=== PATIENT | female | born 1990 | race American Indian/Alaskan Native ===

== ENCOUNTER 2017-06-25 10:01 | Emergency (ER) | payer MEDICAID ==
[2017-06-25 10:23] VITALS: BMI 28.8
[2017-06-25] MEDS ORDERED: Sodium Chloride 0.9% 1,000 ML IV SCH (10:30)
[2017-06-25 11:02] LABS: BASO % 0.6 % (0.0-2.0); EOS # 0.3 K/uL (0.0-0.7); EOS % 4.6 % (0.0-4.0); HEMATOCRIT 32.3 % (34.0-47.0); LYMPH % 15.3 % (20.0-40.0); MEAN CELL VOLUME 91.4 fL (81.0-99.0); MEAN CORPUSCULAR HEMOGLOBIN 30.7 pg (27.0-31.0); MEAN CORPUSCULAR HGB CONC 33.5 g/dL (33.0-37.0); MEAN PLATELET VOLUME 8.5 fL (7.2-11.7); MONO # 0.4 K/uL (0.0-0.8); MONO % 6.2 % (0.0-10.0); NRBC % 0.1 % (0.0-2.0); RED CELL DISTRIBUTION WIDTH 12.5 % (11.5-14.5); WHITE BLOOD COUNT 6.7 K/uL (4.8-10.8)
[2017-06-25 11:06] LABS: RBC URINE 8 /hpf (0-3); URINE BACTERIA MOD (<OCC); URINE BILIRUBIN NEGATIVE (NEGATIVE); URINE BLOOD NEGATIVE (NEGATIVE); URINE COLOR Yellow (YELLOW); URINE GLUCOSE (UA) NORMAL (Normal); URINE KETONE 1+ mg/dL (NEGATIVE); URINE LEUKOCYTE ESTERASE 3+ Leu/uL (Negative); URINE PROTEIN 1+ mg/dL (NEGATIVE); URINE UROBILINOGEN NORMAL mg/dL (0.2-1.0); WBC URINE 17 /hpf (0-5)
[2017-06-25 11:08] LABS: INR 0.9
[2017-06-25 11:22] LABS: CHLORIDE 100 mmol/L (98-107); POTASSIUM 3.5 mmol/L (3.6-5.2); SODIUM 130 mmol/L (132-148)
[2017-06-25 11:24] LABS: ALB/GLOB RATIO 0.9 (1.0-2.1); AST/SGOT 27 U/L (14-36); BILIRUBIN,DIRECT 0.4 mg/dL (0.0-0.4); BILIRUBIN,TOTAL 0.8 mg/dL (0.2-1.3); BLOOD UREA NITROGEN 4 mg/dL (7-17); CARBON DIOXIDE 21 mmol/L (22-30); GFR AFRICAN-AMERICAN > 60; TOTAL PROTEIN 7.4 g/dL (6.3-8.3)
[2017-06-25 11:25] LABS: ALKALINE PHOSPHATASE 84 U/L (38-126); ALT/SGPT 20 U/L (9-52); CALCIUM 8.2 mg/dl (8.6-10.4); GLUCOSE,RANDOM 88 mg/dL (65-105); URIC ACID 3.8 mg/dL (2.2-7.5)
--- NOTE | 2017-06-25 12:41 | US ---
Indication: Decreased movement Comparison: None available Technique: Real-time ultrasound was performed through the pelvis. Findings: There is a single living fetus in cephalic presentation. Amniotic fluid volume is within normal limits. Posterior placenta. The placenta is not previa. There are no adnexal masses or cysts evident. Probable midline uterine fibroid measures approximately 3.6 x 2.1 x 3.2 cm. Cervix length measures approximately 3.6 cm. The study was performed for the emergent evaluation of decreased movement, and the whole anatomic survey of the fetus was not performed. This should be performed on an outpatient elective basis as clinically warranted. Measurements and calculations: Fetus has a composite sonographic age of 28 weeks 1 day. This calculation is based on the biparietal diameter, head circumference, abdominal circumference, and femur length. Estimated heart rate 137.2 beats per min. Impression: Single living fetus with a composite sonographic age of 28 weeks 1 day. Estimated heart rate 137.2 beats per min. 3.6 cm probable uterine fibroid.
--- NOTE | 2017-06-25 12:55 | OBHP ---
Datetime: 06/25/2017 12:55 FHR - Baseline A Provider: 140 NICHD Variability Prov Fetus A: Moderate 6-25bpm NICHD Accel Fetus A IP Provider: 10X10 FHR Category Provider Fetus A: Category I Datetime: 06/25/2017 10:33 Admit Comment, IP Provider: 27 year old female , LMP 11/30/16, ZAHRA 09/07/17, EGA 30weeks 1 day . (+) AFM, denies CORNELIA, VB. care Dr. Bailon. Patient states she has been having back pain for the past 2 days that stays and it feels like a muscle pain about 7/10. It is worse when she is m oving and it becomes a 9/10. Nothing makes the pain better and she has not taken anything for the pa in. She states she also feels lightheadedness like she is going to pass out and when she has that fe eling which comes and goes she lays down. She also states she has had some nausea. Patient states s he had an appointment yesterday with Dr. Bailon but she was not feeling very well and she missed he r appointment. The last time she had an appointment was 2 weeks ago. OB History: Vaginal delivery (baby boy 6lbs 12oz) in 2014 delivered at [facility] [employer] History: [id number] Medical History: Asthma, reflux Surgical History: Sinus surgery Social History: Denies alcohol, Smoked marijuana 2x per week stopped during . Denies othe r illicit drug use Medications: Albuterol as needed, medication for reflux - patient does not recall the name Allergies: Nuts - throat closes, fish: rashes Physical Exam: Alert, awake, oriented x3 Heart: RRR Lungs: Clear Abdomen: Soft, non-tender, fundus at about 30 weeks, No CVA tenderness Lower Extremities: No swelling, tenderness A/P: 27 yo female at 30weeks 1day 1.) f/u CBC, CMP, liver panel, INR/PT, fibrinogen, LDH, uric acid 2.) US 3.) UA Discussed case with Dr. Artur Kern PGY-1 Attending not agrees with qabove Pelvic Type - PN: Adequate Extremities - PN: Normal Abdomen - PN: Normal Back - PN: Normal Breast - PN: Normal Lungs - PN: Normal Heart - PN: Normal Thyroid - PN: Normal Neurologic - PN: Normal HEENT - PN: Normal General - PN: Normal Contraction Comments Provider: none Comments, ACOG Physical Exam: Alert, awake, oriented x3 Heart: RRR Lungs: Clear Abdomen: Soft, non-tender, fundus at about 30 weeks, No CVA tenderness Lower Extremities: No swelling, tenderness IP Hx Assessment: The History has been Reviewed and is Current EGA AdmitDate IP: 29.3 Vital Signs Provider: Reviewed; Within Normal Limits IP Chief Complaint: Decreased movement; Signs/symptoms UTI Dilatation, Provider: 0 Effacement, Provider: 0 Station, Provider: -3 Genitourinary Exam: Normal DTRs - PN: Normal
--- NOTE | 2017-06-25 12:57 | OBDCSUM ---
Datetime: 06/25/2017 12:56 Discharged to, Provider: Home Follow up at, Provider: dr bennett Follow up in weeks, Provider: 2 -3 Disch Activity Restrictions: Nothing in vagina - [place], tampons, douche Discharge Comment, Provider: macrobid 100 mg bid x 7 days kdur po ptl given po hyr f/u DrAmonsah in 2-3 days Discharge Diagnosis Prov Other: 29week nst r/o pih uti
--- NOTE | 2017-06-25 12:58 | OBHP ---
Datetime: 06/25/2017 12:55 Admit Comment, IP Provider: pt was seen at bed side.feels ok blood work n k 3.5 ua 3 +le plan macrobid 100 mg bid x 7 days kdur po ptl given po hyr f/u DrAmonsah in 2-3 days
[2017-06-25] MEDS ORDERED: Potassium Chloride 20 mEq ER Tab PO SCH (13:00)
[2017-06-26 17:24] VITALS: BP 111/66; PULSE 82; O2SAT 100
== END 2017-06-25 12:56 | disposition home or self-care (01) ==
LOC: C.EROB 10:01
DX: O36.8130 Decreased fetal movements, third trimester, not applicable or unspecified (principal); Z3A.29 29 weeks gestation of pregnancy
CPT/HCPCS: 76815; 80053; 81001; 82248; 83615; 84550; 85025; 85384; 85610; 99283; J7040

== ENCOUNTER 2017-07-18 13:21 | Emergency (ER) | payer MEDICAID ==
[2017-07-18 14:23] VITALS: BMI 30.3
--- NOTE | 2017-07-18 14:41 | C.PDOC ---
History Of Present Illness 27 year old female, 32 weeks , with past medical history of asthma, seasonal allergies, presents to Emergency Department for evaluation of cough, congestion, shortness of breath for the past 2 weeks. Notes being seen by PMD last week who prescribed cough medication and antibiotics which patient completed without improvement of symptoms. Denies taking any medications for her asthma. Pt reports having an episode of vomiting last week. Otherwise, denies vaginal bleeding, vaginal discharge, abdominal pain, or fever. Chief Complaint (Nursing): Cough, Cold, Congestion History Per: Patient History/Exam Limitations: no limitations Onset/Duration Of Symptoms: Days (1 month) Current Symptoms Are (Timing): Still Present Exacerbating Factor(s): Coughing Current Respiratory Medications: See Home Med List Associated Symptoms: denies: Fever, Chills, Sweating, Bloody Cough, Heart Racing , Leg/Calf Pain, Ankle/Leg Swelling, Dizziness, Light-headedness, Anxiety, Tingling In Hands Or Face, Musle Spasms In Hands Or Feet Reports Recently: Treated By A Physician Recent travel outside of the [place]: No Additional History Per: Patient Past Medical History Reviewed: Historical Data, Nursing Documentation, Vital Signs Vital Signs: Last Vital Signs Temp 97.6 F 07/18/17 16:04 Pulse 111 H 07/18/17 16:04 Resp 18 07/18/17 16:04 BP 121/76 07/18/17 16:04 Pulse Ox 97 07/18/17 16:04 - Medical History PMH: Asthma Denies: Depression, Chronic Kidney Disease - [facility] Procedures INJECT/INFUSE NEC (06/28/14) MANUAL ASSIST DELIV NEC (03/06/15) REPAIR OB LACERATION NEC (03/06/15) Family History: States: Unknown Family Hx - Social History Hx Alcohol Use: No Hx Substance Use: No - Immunization History Hx Tetanus Toxoid Vaccination: No Hx Influenza Vaccination: No Hx Pneumococcal Vaccination: No Review Of Systems Except As Marked, All Systems Reviewed And Found Negative. Constitutional: Positive for: Weakness. Negative for: Fever, Chills ENT: Positive for: Nose Congestion Cardiovascular: Positive for: Chest Pain (tightness). Negative for: Palpitations, Light Headedness Respiratory: Positive for: Cough, Shortness of Breath. Negative for: Hemoptysis , Sputum Gastrointestinal: Positive for: Vomiting. Negative for: Abdominal Pain, Diarrhea, Constipation Genitourinary: Negative for: Vaginal Discharge, Vaginal Bleeding Musculoskeletal: Negative for: Back Pain Neurological: Positive for: Headache, Dizziness Physical Exam - Physical Exam Appears: Non-toxic, No Acute Distress Skin: Normal Color, Warm, Dry Head: Atraumatic, Normacephalic Eye(s): bilateral: Normal Inspection, PERRL, EOMI Oral Mucosa: Moist Neck: Normal ROM, Supple Chest: Symmetrical Cardiovascular: Rhythm Regular, No Murmur Respiratory: Normal Breath Sounds, No Accessory Muscle Use, No Rales, No Rhonchi , No Wheezing, Other (dry cough) Gastrointestinal/Abdominal: Soft, No Tenderness Back: Normal Inspection Extremity: Normal ROM, No Pedal Edema, No Deformity Neurological/Psych: Oriented x3, Normal Speech Gait: Steady ED Course And Treatment O2 Sat by Pulse Oximetry: 98 (RA) Pulse Ox Interpretation: Normal Medical Decision Making Medical Decision Making: Plan: * Nebulizer treatment * Reassess Patient was already seen and cleared from L&D. Patient has no fever and in no respiratory distress. Constant dry cough observed. treated with albuterol nebulizers, she reports relief. recommend short course of prednisone to help with asthma, allergies and bronchospasm. patient agrees and will take Rx. Instruct to follwo up with PCP Disposition Counseled Patient/Family Regarding: Diagnosis, Need For Followup, Rx Given - Disposition Disposition: HOME/ ROUTINE Disposition Time: 15:40 Condition: STABLE Additional Instructions: Follow up with your primary medical doctor or clinic in 2-5 days for further evaluation. Take medications as prescribed. Return to the emergency department at any time if symptoms persist or worsen. Prescriptions: Amoxicillin 500 mg PO BID #14 tablet Prednisone [Deltasone] 2 tab PO DAILY #6 tablet Instructions: Upper Respiratory Infection (ED) Forms: [employer] (Persian) - POA Present On Arrival: None - Clinical Impression Clinical Impression: Upper respiratory infection - PA / DATA ENTRY TECHNICIAN / Resident Statement MD/DO has reviewed & agrees with the documentation as recorded. - Scribe Statement The provider has reviewed the documentation as recorded by the Nicolás Marlow All medical record entries made by the Madelaineibisrael were at my direction and personally dictated by me. I have reviewed the chart and agree that the record accurately reflects my personal performance of the history, physical exam, medical decision making, and the department course for this patient. I have also personally directed, reviewed, and agree with the discharge instructions and disposition.
[2017-07-18] MEDS ORDERED: Albuterol 0.083% Inhal Sol (2.5 mg/3 mL) UD ONE ×2 (14:44→15:12)
[2017-07-18] MEDS: Albuterol 0.083% Inhal Sol (2.5 mg/3 mL) UD INH SCH ×2 (14:47→15:50)
[2017-07-18 16:05] VITALS: RESP 18; TEMP 97.6
[2017-07-18 18:17] VITALS: BP 119/70; PULSE 105; O2SAT 97
--- NOTE | 2017-07-27 02:55 | OBHP ---
Datetime: 07/27/2017 02:43 IP Adm Impression: , intrauterine Admit Comment, IP Provider: @ 34 wks GA reports 1 epsides of nause , vomiting 11pm (non bloody, non billious) with back pain and generalized muscle weakness and cramping. Pt states symptoms on and off x 1-2 days. Pt denies any fever, chills, cp, sob, dysuira, urgency, frequency, constipation, norma rrhea. pt reports able to tolerate po intake. Pt reports she was sick x 1 month and given anbitoc due ot upper respiratory infection. pT staets she has not received flu vaccine. Pt denies any sick conta cts. Pt denies any pelvic pressre, vb, ctx, lof adn reports normal movements. Pt reports she re ceives pnc with Dr Bailon and has an appointment on Friday and denies any issues during the pregnan cy. OB: FT Jace 2014 6lbs 12 ounces + uncomplicated [employer]: denies hx o fabnormla pap, fibroids, ovarian cyst, sti PMH: Asthma (denies intubations, recent hospitalization) PSH: nasal surgery FHX: non contributory MEDS: PNV ALLERGY: Fish, nuts SHX; h xof marijuna use, denies etoh/tobacco use A/P @ 34 + wks with gastroenteritis -f/u Labs; CBC, CMP, Amylase, lipase, UA -IVH -Po Challenge: able to tolerate -NST -no evidence of ptl -d/c home -f/u Dr Bailon Friday or return to [facility] as needed- precautions given Dr Bailon aware Pelvic Type - PN: Adequate Extremities - PN: Normal Abdomen - PN: Normal Back - PN: Normal Breast - PN: Not Done Lungs - PN: Normal Heart - PN: Normal Thyroid - PN: Not Done Neurologic - PN: Normal HEENT - PN: Normal General - PN: Normal Presentation-Admit: Vertex FHR - Baseline A Provider: 140 Membranes, Provider: Intact Contraction Comments Provider: irritalibty Comments, ACOG Physical Exam: GEN NAD, AA ox 3 RESP: ctab/l CVS< +S1/S2 Abd; gravid, NT, no palpable ctx, no guarding, no rebound tendnerness, no rigidity, BACK: no CVA b/l, non tendner b/l VE: Extenral Gentialia: no gross abnormalites Vagina: no blood no discharge Cerid; Long, closed, postieor Uterus: non tender Andex; non tender Anus/PereinuM: grossly normal Ext; negative bharati's sign, no edema Gestation - Est Wks by US: 34.0 EGA AdmitDate IP: 34.0 Vital Signs Provider: Reviewed IP Chief Complaint: Other NICHD Variability Prov Fetus A: Moderate 6-25bpm FHR Category Provider Fetus A: Category I Dilatation, Provider: 0 Effacement, Provider: 0 Station, Provider: -3 Genitourinary Exam: Normal DTRs - PN: Not Done
== END 2017-07-18 16:00 | disposition home or self-care (01) ==
LOC: C.EROB 13:21 → C.ER 13:21 → C.EROB 13:57
DX: J06.9 Acute upper respiratory infection, unspecified (principal)

== ENCOUNTER 2017-08-21 12:12 | Emergency (ER) | payer MEDICAID ==
--- NOTE | 2017-08-21 16:36 | US ---
PROCEDURE: Obstetrical ultrasound examination HISTORY: Decreased movement COMPARISON: 06/25/2017 TECHNIQUE: Transabdominal FINDINGS: There is a single live intrauterine gestation in cephalic presentation. The heart rate is 144 beats per minute. A grossly normal quantity of amniotic fluid is visualized. A normal posterior placenta is identified. There is no evidence of placenta previa. The cervix is closed and measures 3.3 cm in length. biometry yields an ultrasound age of 34 weeks 3 days. The ZAHRA by ultrasound is 09/29/2017. Estimated weight is 2475 g. Limited review of anatomy demonstrates fluid distending the stomach and urinary bladder. Two normal kidneys are visualized without hydronephrosis. A 4 chamber heart is seen. A three-vessel umbilical cord is identified. The anterior abdominal wall is intact. The umbilical arterial S/D ratio is 2.1. A limited biophysical profile examination yields a score of 8 out of 8 IMPRESSION: Single live intrauterine gestation of approximately 34 weeks 3 days gestational age. No gross anatomic abnormality. Posterior placenta. No evidence of placenta previa. Cephalic presentation. Cervix long and closed. Normal amniotic fluid volume. Biophysical profile score is 8 out of 8.
--- NOTE | 2017-08-21 17:26 | OBHP ---
Datetime: 08/21/2017 15:44 IP Adm Impression: Term, intrauterine IP Admit Plan: Discharge home Admit Comment, IP Provider: Patient is a 27 year old at 37w4d ZAHRA 09/07/17 by LMP presents t o L+D for decreased movement. Patient states that she noticed the baby not moving as much since 6pm last night. Also states that she is itchy in the face and scalp. Offers no other complaints at t his time. Currently endorses +FM, denies CTX, LOF, VB. Issues: Denies OB Hx: 1. 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 Patient is feeling the baby move. Will have patient return on Friday morning for NST. Patient is scheduled for induction friday evening. Dr Dias office notified. Plan d/w attending. OB attending patient examined.agree with resident exam, assessment and plan Extremities - PN: Normal Abdomen - PN: Normal Neurologic - PN: Normal General - PN: Normal FHR - Baseline A Provider: 140 Contraction Comments Provider: none Comments, ACOG Physical Exam: VSS Gen: AAOx3 Abd: soft, gravid Ext: No clubbing, cyanosis, edema SVE: deferred Gestation - Est Wks by US: 37.4 IP Hx Assessment: The History has been Reviewed and is Current EGA AdmitDate IP: 37.4 Vital Signs Provider: Reviewed; Within Normal Limits IP Chief Complaint: Decreased movement NICHD Variability Prov Fetus A: Moderate 6-25bpm NICHD Accel Fetus A IP Provider: 15X15 FHR Category Provider Fetus A: Category I NICHD Decel Fetus A IP Provider: None Genitourinary Exam: Normal
[2017-08-21 21:13] VITALS: BP 117/76; PULSE 75; RESP 20; TEMP 97; O2SAT 100
== END 2017-08-21 16:50 | disposition home or self-care (01) ==
LOC: C.EROB 12:12
DX: O36.8130 Decreased fetal movements, third trimester, not applicable or unspecified (principal); Z3A.37 37 weeks gestation of pregnancy

== ENCOUNTER 2017-08-23 09:39 | Emergency (ER) | payer MEDICAID ==
--- NOTE | 2017-08-23 11:39 | OBHP ---
Datetime: 08/23/2017 10:18 IP Adm Impression: Term, intrauterine IP Chief Complaint Other: NST IP Admit Plan: Discharge home Admit Comment, IP Provider: Patient is a 27 year old at 37w6d ZAHRA 09/07/17 by (LMP 11/30/16) presents today for NST. Patient state that she is still having itching of the face and scalp however has not been taking any medications for the itchiness. Offers no other complaints at this time. Endor ses +FM, denies CTX, VB, LOF. Issues: Cholestasis of OB Hx: 1. 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 Works at [employer] Family Hx: Mother - age 57, HTN; Father age 54 - healthy; denies family hx of cancer PE: See above A/P: 27 year old at 37w6d presents for NST -Stable, afebrile -NST is reactive -Scheduled induction on Friday08/25/17 for cholestasis of -Labor precautions given -Plan discussed with attending Meghan Bennett Attending Note: Patient seen, evaluated and examined by me with the Resident. I agree with the grey maria as documented. Category 1 tracing/ NST reactive. Clinically stable. Plan: 1) Discharge home 2) Reviewed S/S labor 3) Return Fri08/25/17 for IOL 4) Continue PNV, iron FHR - Baseline A Provider: 150 Contraction Comments Provider: none Comments, ACOG Physical Exam: VS: 130/86 105 Gen: AAOx3 CV: RRR Lungs: CTA B/L Abd: Soft, gravid Ext: No clubbing, cyanosis, edema SVE: deffered EFM: TOCO: no CTX IP Hx Assessment: The History has been Reviewed and is Current EGA AdmitDate IP: 37.6 Vital Signs Provider: Reviewed IP Chief Complaint: Other NICHD Variability Prov Fetus A: Moderate 6-25bpm NICHD Accel Fetus A IP Provider: 15X15 NICHD Decel Fetus A IP Provider: None
[2017-08-23 16:16] VITALS: BP 121/82; PULSE 105; RESP 20; O2SAT 98
== END 2017-08-23 11:30 | disposition home or self-care (01) ==
LOC: C.EROB 09:39
DX: Z36.9 Encounter for antenatal screening, unspecified (principal); Z3A.37 37 weeks gestation of pregnancy

== ENCOUNTER 2017-08-25 19:49 | Inpatient (IN) | payer MEDICAID ==
[2017-08-25 20:30] VITALS: BMI 31.1
[2017-08-25] MEDS ORDERED: Dextrose 5%/Lactated Ringer's 1,000 ML IV SCH (20:30)
[2017-08-25] MEDS ORDERED: Nalbuphine 20 mg/ml Inj (1 ml) IVP PRN (20:32)
--- NOTE | 2017-08-25 20:41 | OBADHP ---
Datetime: 08/25/2017 20:34 Admit Comment, IP Provider: at 38+weeks her for induction for labor. pt has been itiching on /o ff. pt was diagnosed with choleostasis of preg 1 week ago.no ctxs, vb, lof,+fm. obhx 1 x pmh asthma med pnv all nkda psh den soch de ve /-3 a/p at 38+weeksa here for induction for choleostasis of preg admit to l_d npo/ivf labs pain management cont norm and efm cervidil anticipate Pelvic Type - PN: Adequate Extremities - PN: Normal Abdomen - PN: Normal Back - PN: Normal Breast - PN: Normal Lungs - PN: Normal Heart - PN: Normal Thyroid - PN: Normal Neurologic - PN: Normal HEENT - PN: Normal General - PN: Normal FHR - Baseline A Provider: 130 Contraction Comments Provider: irrg Comments, ACOG Physical Exam: gravid,non tender ext no edema,no calf ten no rash IP Hx Assessment: The History has been Reviewed and is Current Vital Signs Provider: Reviewed; Within Normal Limits IP Chief Complaint: Scheduled induction of labor NICHD Variability Prov Fetus A: Moderate 6-25bpm NICHD Accel Fetus A IP Provider: 15X15 FHR Category Provider Fetus A: Category I Dilatation, Provider: 1 Effacement, Provider: 50 Station, Provider: -3 Genitourinary Exam: Normal DTRs - PN: Normal IP Adm Impression: Term, intrauterine ; No Active Labor IP Admit Plan: Admit to unit; Initiate labor induction protocol Datetime: 08/23/2017 10:18 IP Chief Complaint Other: NST NICHD Decel Fetus A IP Provider: None Datetime: 08/21/2017 15:44 Gestation - Est Wks by US: 37.4 Datetime: 07/27/2017 02:43 Presentation-Admit: Vertex Membranes, Provider: Eulogio LOPEZ AdmitDate IP: 34.0
[2017-08-25] MEDS: Lactated Ringer's 1,000 ML IV SCH (21:15)
--- NOTE | 2017-08-25 21:22 | OBPN ---
Datetime: 08/25/2017 21:19 IP Procedures: Sterile Vag Exam IP Progress Plan: Cervical Ripening Contraction Comments Provider: occ FHR - Baseline A Provider: 140 IP Progress Note Comment: pt was examined at bed side ve 1/50/-3 cervidil placed r/a/b disc Vital Signs Provider: Reviewed; Within Normal Limits NICHD Accel Fetus A IP Provider: 15X15 FHR Category Provider Fetus A: Category I NICHD Variability Prov Fetus A: Moderate 6-25bpm Datetime: 08/25/2017 20:34 Dilatation, Provider: 1 Effacement, Provider: 50 Station, Provider: -3 Datetime: 08/23/2017 10:18 NICHD Decel Fetus A IP Provider: None Datetime: 08/21/2017 15:44 Gestation - Est Wks by US: 37.4 Datetime: 07/27/2017 02:43 Membranes, Provider: Intact Presentation-Admit: Vertex
[2017-08-25 21:44] LABS: BASO % 0.4 % (0.0-2.0); EOS # 0.2 K/uL (0.0-0.7); EOS % 2.5 % (0.0-4.0); HEMATOCRIT 35.6 % (34.0-47.0); LYMPH # 1.3 K/uL (1.0-4.3); LYMPH % 16.6 % (20.0-40.0); MEAN CELL VOLUME 91.7 fL (81.0-99.0); MEAN CORPUSCULAR HEMOGLOBIN 29.8 pg (27.0-31.0); MEAN CORPUSCULAR HGB CONC 32.5 g/dL (33.0-37.0); MEAN PLATELET VOLUME 8.5 fL (7.2-11.7); MONO # 0.4 K/uL (0.0-0.8); MONO % 5.4 % (0.0-10.0); NRBC % 0.1 % (0.0-2.0); RED CELL DISTRIBUTION WIDTH 15.9 % (11.5-14.5)
[2017-08-25 21:56] LABS: ALKALINE PHOSPHATASE 126 U/L (38-126); ALT/SGPT 35 U/L (9-52); AST/SGOT 21 U/L (14-36); BILIRUBIN,TOTAL 0.5 mg/dL (0.2-1.3); BLOOD UREA NITROGEN 3 mg/dL (7-17); CALCIUM 7.9 mg/dl (8.6-10.4); CARBON DIOXIDE 24 mmol/L (22-30); CHLORIDE 103 mmol/L (98-107); GFR AFRICAN-AMERICAN > 60; GLUCOSE,RANDOM 118 mg/dL (65-105); POTASSIUM 3.2 mmol/L (3.6-5.2); SODIUM 132 mmol/L (132-148); TOTAL PROTEIN 7.4 g/dL (6.3-8.3)
[2017-08-25 21:59] LABS: ALB/GLOB RATIO 0.8 (1.0-2.1); BILIRUBIN,DIRECT 0.3 mg/dL (0.0-0.4)
[2017-08-25 22:19] LABS: RBC URINE 3 /hpf (0-3); URINE BACTERIA OCC (<OCC); URINE BILIRUBIN NEGATIVE (NEGATIVE); URINE BLOOD NEGATIVE (NEGATIVE); URINE COLOR Yellow (YELLOW); URINE GLUCOSE (UA) NORMAL (Normal); URINE KETONE 1+ mg/dL (NEGATIVE); URINE LEUKOCYTE ESTERASE TRACE Leu/uL (Negative); URINE PROTEIN NEGATIVE (NEGATIVE); URINE UROBILINOGEN NORMAL mg/dL (0.2-1.0); WBC URINE 2 /hpf (0-5)
[2017-08-26] MEDS ORDERED: Albuterol HFA 90 mcg/actuation (8 g) INH PRN (08:00)
[2017-08-26] MEDS ORDERED: Nalbuphine 20 mg/ml Inj (1 ml) ONE (10:23)
--- NOTE | 2017-08-26 10:54 | OBPN ---
Datetime: 08/26/2017 10:52 IP Progress Impression: Reassuring heart rate IP Procedures: Sterile Vag Exam IP Progress Plan: Continue present management Contraction Comments Provider: irregular ctx Vital Signs Provider: Reviewed; Within Normal Limits FHR Category Provider Fetus A: Category I Dilatation, Provider: 3-4 Effacement, Provider: 80 Station, Provider: -2 Datetime: 08/26/2017 10:10 IP Progress Note Comment: S-patient reports feeling soem ctx o-vss afebrile FHT cat1 Tooc irregular ctx sve /-3 A/P Patient being indueced for cholestasis. -cervidil removed -clear liquid diet -start pitocin
--- NOTE | 2017-08-26 10:56 | OBPN ---
Datetime: 08/26/2017 10:52 Gestation - Est Wks by US: 38.2 Weight - Estimated: 3200 Presentation-Admit: Vertex IP Progress Note Comment: S-patient uncofortable with ctx O-VSS Afebrile FHT cat 1 Tooc irregular ctx SVE 3-4/80/-2; adequate pelvis A/P patient being induced for cholestasis.S/P cervidil.attempted cook cathete rinsertion but patie nt rapidly progressed to 3-4 cm just after the balloon wa sinflated.hence the cook cather ter removed -start pitocin -epidural when patient requests
[2017-08-26] MEDS ORDERED: Bupivacaine 0.125%/FentaNYL 200 ML EPI ONE (11:42)
[2017-08-26] MEDS ORDERED: Oxytocin 30 UNIT 30 UNITS/500 ML BAG IV ONE (11:57)
[2017-08-26] MEDS ORDERED: Oxytocin 30 UNIT 30 UNITS/500 ML BAG IV SCH (12:00)
[2017-08-26] MEDS ORDERED: Oxytocin 10 Units/ml Inj IV ONE (12:10)
[2017-08-26] MEDS: Lactated Ringer's 1,000 ML IV SCH (13:20)
--- NOTE | 2017-08-26 13:50 | OBPN ---
Datetime: 08/26/2017 13:44 IP Progress Impression: Normal progression of labor; Reassuring heart rate IP Procedures: Artificial ROM; Sterile Vag Exam IP Progress Plan: Continue present management Contraction Comments Provider: every 1-2min IP Progress Note Comment: S-patient comfortable with epidural O-VSS Afebrile FHT cat1 Floris ctx q 1-2min sve 5/80/-2 A/P Patient at 38.2 wga being induce dfor cholestasis.S/p cervidil.gbs negative.on pit.pit at 6 -arom done.clear fluid -continue current management -anticipta nvd Vital Signs Provider: Reviewed; Within Normal Limits FHR Category Provider Fetus A: Category I Dilatation, Provider: 5 Effacement, Provider: 80 Station, Provider: -2
[2017-08-26] MEDS ORDERED: Benzocaine/Menthol 20%-0.5% Topical Spray (60 ml) TOP PRN (15:00)
[2017-08-26] MEDS ORDERED: Potassium Chloride 20 mEq ER Tab PO ONE (20:00)
--- NOTE | 2017-08-26 20:18 | OBDS ---
DELIVERY PERSONNEL Delivery Doctor: Tan Kiran MD Quality Assurance Auditor: Pauline Howard RN Anesthesiologist: Eliza Broderick MD MATERNAL INFORMATION Delivery Anesthesia: Epidural Medications in Delivery: pitocin Estimated Blood Loss (ml): 250 Placenta Cultured: Yes Maternal Complications: None Provider Comments: This 27 year old G2 now P2 delivered a viable female infant on 08/26/17 at 14:44. Head was delivered in a controlled fashion. Both shoulders and body were delivered atraumatically. Co rd was clamped and cut. Cord pH and cord blood collected and sent to the lab. Infant mouth and nose w ere suctioned with bulb syringe. was placed on mothers abdomen. Placenta was delivered with IV pitocin and fundal massage. EBL 250cc. APGARS 9 and 9. weight 6lbs 8oz. All instrument and sp onge counts correct. Mom and baby are recovering in stable condition. Dr Kiran present for entire deli very. Meghan Bennett DO PGY-1 agree with above LABOR SUMMARY EDC: 09/07/2017 00:00 No. Babies in Womb: 1 Attempted: No Labor Anesthesia: Epidural LABOR INFORMATION Reason for Induction: Other Reason for Induction Other: cholestasis of preg Onset of Labor: 08/26/2017 13:41 Complete Dilatation: 08/26/2017 14:36 Cervical Ripening Agents: Cervidil (Annotations: removed by Dr. Kiran) Oxytocin: Augmentation Group B Beta Strep: Negative Steroids Given: None Reason Steroids Not Administered: Not Applicable MEMBRANES Membranes Rupture Method: Artificial Rupture of Membranes: 08/26/2017 13:41 Length of Rupture (hrs): 1.05 Amniotic Fluid Color: Clear Amniotic Fluid Amount: Small Amniotic Fluid Odor: Normal STAGES OF LABOR Stage 1 hrs: 0 Stage 1 min: 55 Stage 2 hrs: 0 Stage 2 min: 8 Stage 3 hrs: 0 Stage 3 min: 7 Total Time in Labor hrs: 1 Total Time in Labor min: 10 VAGINAL DELIVERY Episiotomy: None Laceration Extension: N/A Laceration Type: None Laceration Repair: Not Applicable Sponge Count Correct: Yes; Vaginal Sweep Performed Sharps Count Correct: N/A BABY A INFORMATION Delivery Date/Time: 08/26/2017 14:44 Method of Delivery: Vaginal Born in Route : No : N/A Forceps: N/A Vacuum Extraction: N/A Shoulder Dystocia : No SHOULDER DYSTOCIA BABY A Infant Delivery Date/Time: 08/26/2017 14:44 PRESENTATION/POSITION BABY A Presentation: Cephalic Cephalic Presentation: Vertex Vertex Position: Left Occipital Anterior Breech Presentation: N/A PLACENTA INFORMATION BABY A Placenta Delivery Time : 08/26/2017 14:51 Placenta Method of Delivery: Spontaneous Placenta Status: Delivered SCORES BABY A Heart Rate 1 min: >100 bpm Resp Effort 1 min: Good Cry Reflex Irritability 1 min: Cough or Sneeze or Pulls Away Muscle Tone 1 min: Active Motion Color 1 min: Body Bucks, Extremities Blue SCORE 1 MIN: 9 Heart Rate 5 min: >100 bpm Resp Effort 5 min: Good Cry Reflex Irritability 5 min: Cough or Sneeze or Pulls Away Muscle Tone 5 min: Active Motion Color 5 min: Body Bucks, Extremities Blue SCORE 5 MIN: 9 INFANT INFORMATION BABY A Gestational Age at Delivery: 38.2 Gestational Status: Term Outcome : Liveborn Infant Condition : Stable Sex: Female IDENTIFICATION/MEDS BABY A ID Band Number: [id number] ID Band Location: Left Leg; Left Arm Sensor Applied: Yes Sensor Number: [id number] Sensor Location : Cord Clamp Vitamin K Given : Not Given Erythromycin Given: Not Given WEIGHT/LENGTH BABY A Infant Birthweight (gms): 2955 Infant Weight (lb): 6 Infant Weight (oz): 8 Infant Length Inches: 19.00 Infant Length cms: 48.3 CORD INFORMATION BABY A No. Cord Vessels: 3 Nuchal Cord : N/A Cord Blood Taken: Yes Infant Suction: Mouth; Nose ASSESSMENT BABY A Infant Complications: None Physical Findings at Delivery: Within Normal Limits Infant Respirations: Appears Normal Fire Control Assistant/ALS Called : No Infant Care By: Ivanna Morgan Transferred To: Nursery
[2017-08-27 08:09] LABS: BASO % 0.3 % (0.0-2.0); EOS # 0.2 K/uL (0.0-0.7); EOS % 2.2 % (0.0-4.0); HEMATOCRIT 32.7 % (34.0-47.0); LYMPH # 0.9 K/uL (1.0-4.3); LYMPH % 9.6 % (20.0-40.0); MEAN CELL VOLUME 91.7 fL (81.0-99.0); MEAN CORPUSCULAR HEMOGLOBIN 31.1 pg (27.0-31.0); MEAN CORPUSCULAR HGB CONC 33.9 g/dL (33.0-37.0); MEAN PLATELET VOLUME 8.5 fL (7.2-11.7); MONO # 0.6 K/uL (0.0-0.8); MONO % 6.3 % (0.0-10.0); PLATELET COUNT 165 K/uL (130-400); RED CELL DISTRIBUTION WIDTH 15.6 % (11.5-14.5); WHITE BLOOD COUNT 9.7 K/uL (4.8-10.8)
[2017-08-27 08:30] VITALS: O2SAT 99
--- NOTE | 2017-08-27 09:03 | OBPPN ---
Datetime: 08/27/2017 07:45 PP Pain Prov: Within normal limits PP Nausea Prov: Denies PP Flatus Prov: No PP BM Prov: No PP Heart Prov: Normal PP Lungs Prov: Normal PP Abdomen/Uterus Prov: Normal PP Lochia Prov: Normal PP Extremities Prov: Normal PP Progress Prov: Normal PP Comments Phys Exam Prov: Fundus firm below umbilicus Ext: no clubbing, cyanosis, edema PP Impression Prov: Normal progression PP Plan Prov: Continue present management PP Progress Note Prov: Patient seen and examined at bedside. Per nursing no acute events overnight. Patient is doing well, pain is controlled. Itchiness has resolved. Lochia is moderate. Ambulating and tolerating diet. Urinating without difficulty. Denies passing flatus and BM. Bottle feeding. Denies headaches, dizziness, cp, palpitations, sob, urinary symptoms. VSS Gen: AAOx3 CV: RRR Lungs: CTA B/L Abd: Soft, fundus firm below umbilicus Ext: No clubbing, cyanosis, edema; no calf tenderness Labs: 8.0>11.5/35.6<213 F/U am CBC B positive Rubella immune A/P: 27 year old at 38w2d s/p PPD#1 -Stable, afebrile -Pain control prn -F/U am CBC -Encourage ambulation and hydration -Continue routine care -Anticipate d/c home tomorrow -Plan d/w attending Meghan Bennett DO PGY-1 Vital Signs Provider PP: Reviewed; Within Normal Limits
[2017-08-27] MEDS: Oxycodone/Acetaminophen 5/325 mg Tab PO PRN ×2 (10:08→22:59)
[2017-08-27 10:27] LABS: EOSINOPHIL 2 % (0-4); NEUTROPHIL 79 % (50-75); TOTAL CELLS COUNTED 100
[2017-08-28 08:41] VITALS: BP 123/75; PULSE 70; RESP 18
--- NOTE | 2017-08-28 11:28 | OBDCSUM ---
Datetime: 08/28/2017 11:26 Discharge Diagnosis, Provider: Term Delivered Contraception discussed, Prov: Yes Discharge Diagnosis Prov Other: Cholestasis of Contraception counseling Contraception after Delivery: Undecided
--- NOTE | 2017-08-28 11:28 | OBPPN ---
Datetime: 08/28/2017 11:20 PP Pain Prov: Within normal limits PP Nausea Prov: Denies PP Flatus Prov: Yes PP BM Prov: Yes PP Breasts Prov: Normal PP Heart Prov: Normal PP Lungs Prov: Normal PP Abdomen/Uterus Prov: Normal PP Lochia Prov: Normal PP Vulva/Perineum Prov: Normal PP CVA Tenderness Prov: Normal PP Extremities Prov: Normal PP C/S Incision Prov: Not Applicable PP Progress Prov: Not Applicable PP Comments Phys Exam Prov: Abdomen: Soft. non distended. Fundus firm, mobile, non tender, 1FB bel ow umbilicus. Mild lochia rubra All other systems reviewed and are negative PP Impression Prov: Normal progression PP Plan Prov: Discharge PP Progress Note Prov: Patient received in bed, room 451. Bottlefeeding only. Denies headaches, dizz iness, nausea or vomiting. P.E.: as above. WD in NAD. Awake, alert, oriented to time, person and place. Pleasant and coopera tive - PPD#1 H/H 11.1/32.7. Rh(+) Assessment: PPD#2, 27 y.o. P2, S/P ; h/o cholestasis of . Afebrile, vital signs stab le. Unsure re: contraception. Clinically stable. Plan: 1) Discharge home 2) See full discharge instructions Vital Signs Provider PP: Reviewed; Within Normal Limits
[2017-08-28] MEDS ORDERED: Influenza Vaccine 60 mcg/0.5 mL SYR (4YR UP) IM ONE (11:45)
[2017-08-28 21:57] VITALS: TEMP 97
== END 2017-08-28 15:30 | disposition home or self-care (01) | DRG 373 ==
LOC: C.EROB 19:49 → C.4D 20:30 → C.4M 08-26 16:50
PROVIDERS: ADMIT Obstetrics & Gynecology; ATTEND Obstetrics & Gynecology
PROC: 10E0XZZ Delivery of Products of Conception, External Approach (ICD-10-PCS; principal; 2017-08-25)
DX: O99.62 Diseases of the digestive system complicating childbirth (principal); J45.909 Unspecified asthma, uncomplicated; K80.20 Calculus of gallbladder without cholecystitis without obstruction; Z3A.38 38 weeks gestation of pregnancy; Z37.0 Single live birth

== ENCOUNTER 2018-02-04 09:54 | Emergency (ER) | payer MEDICAID ==
[2018-02-04 09:54] VITALS: BMI 31.1
[2018-02-04] MEDS ORDERED: Albuterol-Ipratrop 3 mg / 0.5 (3 ml) UD INH STA (10:25)
--- NOTE | 2018-02-04 10:31 | C.PDOC ---
History Of Present Illness 27 y/o female, w/PMhx of asthma, presents to the ER complaining of chest discomfort, cough, and wheezing which has been present for the past 2 weeks. Patient states that she ran out of her nebulizer. Patient reports that she is taking taking Jessica for seasonal allergies with mild improvement and she used 1 pediatric dose of Albuterol yesterday. Pt is also complaining of lower abdominal cramping and digitally and positionally reproducible bilateral parasternal discomfort. Denies . Time Seen by Provider: 02/04/18 10:16 Chief Complaint (Nursing): Chest Pain History Per: Patient History/Exam Limitations: no limitations Onset/Duration Of Symptoms: Days Current Symptoms Are (Timing): Still Present Severity: Moderate Past Medical History Reviewed: Historical Data, Nursing Documentation, Vital Signs Vital Signs: Last Vital Signs Temp 98.3 F 02/04/18 10:07 Pulse 82 02/04/18 10:07 Resp 20 02/04/18 10:07 BP 151/84 H 02/04/18 10:07 Pulse Ox 100 02/04/18 11:02 - Medical History PMH: Asthma Denies: Depression, Diabetes, HTN, Chronic Kidney Disease Other Surgeries: Hx of surgeries - [facility] Procedures DELIVERY OF PRODUCTS OF CONCEPTION, EXTERNAL APPROACH (08/25/17) INJECT/INFUSE NEC (06/28/14) MANUAL ASSIST DELIV NEC (03/06/15) REPAIR OB LACERATION NEC (03/06/15) Family History: States: No Known Family Hx - Social History Hx Alcohol Use: No Hx Substance Use: No - Immunization History Hx Tetanus Toxoid Vaccination: No Hx Influenza Vaccination: No Hx Pneumococcal Vaccination: No Review Of Systems Except As Marked, All Systems Reviewed And Found Negative. Constitutional: Negative for: Fever, Chills Cardiovascular: Positive for: Other (chest discomfort) Respiratory: Positive for: Cough, Wheezing Gastrointestinal: Positive for: Abdominal Pain Musculoskeletal: Positive for: Back Pain Physical Exam - Physical Exam Appears: Non-toxic, No Acute Distress Skin: Normal Color, Warm, Dry Head: Atraumatic, Normacephalic Eye(s): bilateral: Normal Inspection Ear(s): Bilateral: Normal Nose: Other (nasal congestion) Oral Mucosa: Moist Throat: Normal, No Erythema, No Exudate Neck: Supple Chest: Symmetrical Cardiovascular: Rhythm Regular Respiratory: No Rales, No Rhonchi, Wheezing (scant wheezing) Gastrointestinal/Abdominal: Normal Exam, Soft, No Tenderness Back: Normal Inspection, No Vertebral Tenderness, No Paraspinal Tenderness Neurological/Psych: Oriented x3, Normal Speech ED Course And Treatment O2 Sat by Pulse Oximetry: 100 (RA) Pulse Ox Interpretation: Normal Progress Note: pepcid, prednisone, Duoneb Reevaluation Time: 11:14 Reassessment Condition: Improved Medical Decision Making Medical Decision Making: asthma poorly treated NOT Disposition Doctor Will See Patient In The: Office Counseled Patient/Family Regarding: Studies Performed, Diagnosis - Disposition Disposition: HOME/ ROUTINE Disposition Time: 11:14 Condition: GOOD Forms: [facility] (Luxem[place]ish) - Clinical Impression Clinical Impression: Exacerbation of asthma - Scribe Statement The provider has reviewed the documentation as recorded by the Nicolás Evans Provider Attestation: All medical record entries made by the Madelaineibe were at my direction and personally dictated by me. I have reviewed the chart and agree that the record accurately reflects my personal performance of the history, physical exam, medical decision making, and the department course for this patient. I have also personally directed, reviewed, and agree with the discharge instructions and disposition.
[2018-02-04] MEDS ORDERED: Albuterol-Ipratrop 3 mg / 0.5 (3 ml) UD ONE ×2 (10:47→10:59)
[2018-02-04 11:09] LABS: HCG,QUALITATIVE URINE NEGATIVE (NEGATIVE)
[2018-02-04 11:17] LABS: SQUAMOUS EPITHIAL 4 /hpf (0-5); URINE BACTERIA RARE (<OCC); URINE BILIRUBIN NEGATIVE (NEGATIVE); URINE BLOOD NEGATIVE (NEGATIVE); URINE CLARITY Clear (Clear); URINE COLOR Yellow (YELLOW); URINE GLUCOSE (UA) NORMAL (Normal); URINE LEUKOCYTE ESTERASE NEG Leu/uL (Negative); URINE PROTEIN NEGATIVE (NEGATIVE); URINE UROBILINOGEN NORMAL mg/dL (0.2-1.0)
[2018-02-04 11:58] VITALS: BP 104/64; PULSE 86; RESP 16; TEMP 98; O2SAT 98
--- NOTE | 2018-02-05 22:40 | CARD ---
APPROVED REPORT EKG Measurement Heart [id number] [id number] <Conclusion> Sinus rhythm with sinus arrhythmia Normal Electrocardiogram
== END 2018-02-04 12:00 | disposition home or self-care (01) ==
LOC: C.ER 09:54
DX: J45.901 Unspecified asthma with (acute) exacerbation (principal)

== ENCOUNTER 2018-05-05 11:56 | Emergency (ER) | payer MEDICAID ==
[2018-05-05 11:57] VITALS: BMI 31.1
[2018-05-05] MEDS ORDERED: DiphenhydrAMINE 50 mg/ml Inj IVP STA (13:26)
--- NOTE | 2018-05-05 13:41 | C.PDOC ---
History Of Present Illness 27 y/o female presents to ED with c/o headache, dizziness and nausea for 3 days associated with photophobia. Patient reports tingling to hands for 2 days and denies fever, head injury, vomiting or any other complaints at this time. Time Seen by Provider: 05/05/18 12:59 Chief Complaint (Nursing): Headache History Per: Patient History/Exam Limitations: no limitations Onset/Duration Of Symptoms: Days Current Symptoms Are (Timing): Still Present Past Medical History Reviewed: Historical Data, Nursing Documentation, Vital Signs Vital Signs: Last Vital Signs Temp 98.4 F 05/05/18 12:07 Pulse 80 05/05/18 12:07 Resp 16 05/05/18 12:07 BP 120/81 05/05/18 12:07 Pulse Ox 99 05/05/18 13:54 - Medical History PMH: Asthma Surgical History: No Surg Hx - [facility] Procedures DELIVERY OF PRODUCTS OF CONCEPTION, EXTERNAL APPROACH (08/25/17) INJECT/INFUSE NEC (06/28/14) MANUAL ASSIST DELIV NEC (03/06/15) REPAIR OB LACERATION NEC (03/06/15) Family History: States: No Known Family Hx - Social History Hx Alcohol Use: No Hx Substance Use: No - Immunization History Hx Tetanus Toxoid Vaccination: No Hx Influenza Vaccination: No Hx Pneumococcal Vaccination: No Review Of Systems Constitutional: Negative for: Fever, Chills Gastrointestinal: Positive for: Nausea. Negative for: Vomiting, Abdominal Pain Skin: Negative for: Rash Neurological: Positive for: Headache. Negative for: Weakness, Numbness Physical Exam - Physical Exam Appears: Non-toxic, No Acute Distress Skin: Warm, Dry, No Rash Head: Atraumatic, Normacephalic Eye(s): bilateral: Normal Inspection (No nystagmus) Oral Mucosa: Moist Neck: Supple Cardiovascular: Rhythm Regular Respiratory: No Rales, No Rhonchi Gastrointestinal/Abdominal: Soft, No Tenderness, No Guarding, No Rebound Back: No CVA Tenderness Extremity: Normal ROM, Capillary Refill (<2 seconds) Neurological/Psych: Oriented x3, Normal Speech, Normal Cognition, Normal Motor, Normal Sensation ED Course And Treatment - Laboratory Results Result Diagrams: 05/05/18 13:43 05/05/18 13:43 O2 Sat by Pulse Oximetry: 99 (RA) Pulse Ox Interpretation: Normal Medical Decision Making Medical Decision Making: On re-exam, the patient reports improvement of symptoms. Lungs are CTA, heart is RRR, abdomen is soft, non-tender and tolerating PO well. Patient is ambulatory in the ED with steady gait. Follow up with the medica doctor/clinic within 1-2 days. Return if worsened. Disposition - Disposition Referrals: Miguel Galan DO [Staff Provider] - Disposition: HOME/ ROUTINE Disposition Time: 15:58 Condition: IMPROVED Additional Instructions: Follow up with the medica doctor/clinic within 1-2 days. Return if worsened. 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 - Scribe Statement The provider has reviewed the documentation as recorded by the Scribisrael Simental All medical record entries made by the Madelaineibisrael were at my direction and personally dictated by me. I have reviewed the chart and agree that the record accurately reflects my personal performance of the history, physical exam, medical decision making, and the department course for this patient. I have also personally directed, reviewed, and agree with the discharge instructions and disposition.
[2018-05-05 13:50] LABS: BASO # 0.1 K/uL (0.0-0.2); BASO % 0.9 % (0.0-2.0); EOS # 1.1 K/uL (0.0-0.7); HEMOGLOBIN 12.7 g/dL (11.0-16.0); LYMPH # 2.1 K/uL (1.0-4.3); LYMPH % 31.7 % (20.0-40.0); MEAN CELL VOLUME 91.8 fL (81.0-99.0); MEAN CORPUSCULAR HEMOGLOBIN 31.1 pg (27.0-31.0); MEAN CORPUSCULAR HGB CONC 33.9 g/dL (33.0-37.0); MEAN PLATELET VOLUME 7.8 fL (7.2-11.7); MONO # 0.5 K/uL (0.0-0.8); MONO % 7.7 % (0.0-10.0); NEUT # 2.9 K/uL (1.8-7.0); NEUT % 43.7 % (50.0-75.0); RBC 4.07 Mil/uL (3.80-5.20); RED CELL DISTRIBUTION WIDTH 13.9 % (11.5-14.5); WHITE BLOOD COUNT 6.7 K/uL (4.8-10.8)
[2018-05-05 13:54] LABS: HCG,QUALITATIVE URINE NEGATIVE (NEGATIVE); SQUAMOUS EPITHIAL 1 /hpf (0-5); URINE BILIRUBIN NEGATIVE (NEGATIVE); URINE BLOOD NEGATIVE (NEGATIVE); URINE CLARITY Clear (Clear); URINE COLOR Straw (YELLOW); URINE GLUCOSE (UA) NORMAL (Normal); URINE LEUKOCYTE ESTERASE NEG Leu/uL (Negative); URINE PROTEIN NEGATIVE (NEGATIVE); URINE UROBILINOGEN NORMAL mg/dL (0.2-1.0)
[2018-05-05] MEDS ORDERED: DiphenhydrAMINE 50 mg/ml Inj ONE (13:56)
[2018-05-05 14:02] LABS: ALB/GLOB RATIO 1.2 (1.0-2.1); ALBUMIN 3.8 g/dL (3.5-5.0); ALT/SGPT 24 U/L (9-52); AST/SGOT 19 U/L (14-36); BLOOD UREA NITROGEN 9 mg/dL (7-17); CALCIUM 8.7 mg/dl (8.6-10.4); GFR AFRICAN-AMERICAN > 60; GFR NON-AFRICAN AMERICAN > 60
[2018-05-05 16:39] VITALS: BP 118/79; PULSE 74; RESP 20; TEMP 98.2; O2SAT 100
== END 2018-05-05 16:44 | disposition home or self-care (01) ==
LOC: C.ER 11:56
DX: R51 Headache (principal)
CPT/HCPCS: 80053; 81001; 84703; 85025; 96374; 96375; 99285; J1200; J1885; J2765

== ENCOUNTER 2018-05-15 10:15 | Emergency (ER) | payer MEDICAID ==
[2018-05-15 10:25] VITALS: BMI 27.4
[2018-05-15 10:26] VITALS: O2SAT 100
--- NOTE | 2018-05-15 11:20 | C.PDOC ---
History Of Present Illness 27 y/o female presents to the ED complaining of a headache for 4 weeks. Associated with occasional nausea, photophobia, and room-spinning dizziness, which comes and goes. Headache is described as diffuse and constant, but waxing and waning in severity. She denies any fever, chills, neck stiffness, visual changes, chest pain, SOB, or weakness. Patient was seen here 10 days ago for similar complaint, had normal labs, and was discharged home with prescriptions for meclizine, naproxen, and fioricet. States that since then, she has been taking naproxen and Tylenol with something for nausea at home without significant improvement. Patient saw her PMD the day after, who recommended rest and proper hydration. Time Seen by Provider: 05/15/18 10:49 Chief Complaint (Nursing): Headache History Per: Patient History/Exam Limitations: no limitations Onset/Duration Of Symptoms: Days Current Symptoms Are (Timing): Still Present Quality: Dull, Aching Associated Symptoms: Photophobia, Nausea Additional History Per: Prior Records Past Medical History Reviewed: Historical Data, Nursing Documentation, Vital Signs Vital Signs: Last Vital Signs Temp 98.1 F 05/15/18 15:16 Pulse 75 05/15/18 15:16 Resp 18 05/15/18 15:16 BP 100/62 05/15/18 15:16 Pulse Ox 100 05/15/18 18:45 - Medical History PMH: Asthma Denies: Depression, Diabetes, HTN, Chronic Kidney Disease - [facility] Procedures DELIVERY OF PRODUCTS OF CONCEPTION, EXTERNAL APPROACH (08/25/17) INJECT/INFUSE NEC (06/28/14) MANUAL ASSIST DELIV NEC (03/06/15) REPAIR OB LACERATION NEC (03/06/15) Family History: States: Unknown Family Hx - Social History Hx Alcohol Use: No Hx Substance Use: No - Immunization History Hx Tetanus Toxoid Vaccination: No Hx Influenza Vaccination: No Hx Pneumococcal Vaccination: No Review Of Systems Constitutional: Negative for: Fever, Chills, Sweats Eyes: Positive for: Other (Photophobia). Negative for: Vision Change Cardiovascular: Negative for: Chest Pain, Palpitations, Light Headedness Respiratory: Negative for: Shortness of Breath Gastrointestinal: Positive for: Nausea. Negative for: Vomiting, Abdominal Pain , Diarrhea Musculoskeletal: Negative for: Neck Pain Neurological: Positive for: Headache, Dizziness (room spinning). Negative for: Weakness, Numbness, Incoordination, Change in Speech Physical Exam - Physical Exam Appears: Non-toxic, No Acute Distress Skin: Normal Color, Warm, Dry Head: Atraumatic, Normacephalic Eye(s): bilateral: Normal Inspection (with no nystagmus), PERRL, EOMI Oral Mucosa: Moist Neck: Normal ROM, No Midline Cervical Tenderness, Supple, Other (No meningeal signs) Chest: Symmetrical Cardiovascular: Rhythm Regular Respiratory: Normal Breath Sounds, No Rales, No Rhonchi, No Wheezing Gastrointestinal/Abdominal: Bowel Sounds (normoactive), Soft, No Tenderness, No Distention Back: Normal Inspection, No CVA Tenderness Extremity: Bilateral: Atraumatic, Normal Color And Temperature, Normal ROM Neurological/Psych: Oriented x3, Normal Speech, Normal Cognition, Normal Cranial Nerves, No Cerebellar Signs, Normal Motor, Normal Sensation, Other ( normal finger nose, no pronator drinft, zach intact. ) Gait: Steady ED Course And Treatment - Laboratory Results Result Diagrams: 05/15/18 11:59 05/15/18 11:59 Urine POC: Negative O2 Sat by Pulse Oximetry: 100 (RA) Pulse Ox Interpretation: Normal - CT Scan/US Head CT w/o contrast Other Rad Studies (CT/US): Read By Radiologist, Radiology Report Reviewed CT/US Interpretation: Accession No. : [id number]. Patient Name / ID : OJSE MONGE / [id number]. Exam Date : 05/15/2018 12:25:24 ( Approved ). Study Comment : Sex / Age : F / 27Y. Creator : Vilma Ramos MD. Dictator : Vilma Ramos MD. Head Grower : Parts Counter Sales Person : Vilma Ramos MD. Approver2 : Report Date : 05/15/2018 12:56:17. My Comment : . Date of service: 05/15/2018. PROCEDURE: CT HEAD WITHOUT CONTRAST. HISTORY: persistent selby with dizziness x 2 weeks. COMPARISON: None available. TECHNIQUE : Axial computed tomography images were obtained through the head/brain without intravenous contrast. Radiation dose: Total exam DLP = 875.22 mGy-cm. This CT exam was performed using one or more of the following dose reduction techniques: Automated exposure control, adjustment of the mA and/or kV according to patient size, and/or use of iterative reconstruction technique. FINDINGS: HEMORRHAGE: No intracranial hemorrhage. BRAIN: Hung-white matter differentiation is preserved. There is no mass, mass effect or abnormal extra- axial fluid collection. There is no territorial infarction. The midline sagittal structures are normal. VENTRICLES: The ventricles are normal in size , shape and configuration. CALVARIUM: The skull base and calvarium are normal. PARANASAL SINUSES: There is fluid/soft tissue nearly completely filling the ethmoid maxillary and sphenoid sinuses with fluid level. There is also mild expansion of the sinuses an osteoneogenesis. Central high attenuation in the left maxillary sinus may represent inspissated secretions or superimposed aspergillosis. MASTOID AIR CELLS: Unremarkable as visualized. No inflammatory changes. OTHER FINDINGS: None. IMPRESSION: No acute intracranial abnormality. Findings are most compatible with acute on chronic pansinusitis. Clinical follow-up is advised. Medical Decision Making Medical Decision Making: Initial Plan: --Blood work --Urine preg --Reglan 10 mg IV --1 L IV fluids Per records reviewed, patient was seen here in the ED on 05/05/18 and had complained of symptoms beginning 3 days prior (just 2 weeks ago). On further discussion, patient is not sure of exact details regarding onset of headache. Patient is a poor historian. Labs reviewed. Head CT ordered. 1300 [address] findings discussed with patient. Copy of report provided. Patient continues to c/o pain. 1500 On reevaluation, patient reports headache resolved after IM Toradol given. Patient is stable for discharge home. Provided with prescriptions for augmentin and sudafed. Advised to follow up with ENT regarding sinusitis. Given copy of CT report. Disposition Counseled Patient/Family Regarding: Studies Performed, Diagnosis, Need For Followup, Rx Given - Disposition Referrals: Raman Calderón MD [Staff Provider] - James Knapp MD [Medical Doctor] - Disposition: HOME/ ROUTINE Disposition Time: 14:25 Condition: IMPROVED Additional Instructions: Please take antibiotics as prescribed. Use sudafed as prescribed. Follow up with ENT Dr Calderón as soon as possible. Tylenol or Motrin for pain. Prescriptions: Acetaminophen [Tylenol 325mg tab] 650 mg PO Q6 #30 tab Amoxicillin/Clavulanate [Augmentin 875 MG-125 MG] 1 tab PO BID #20 tab Pseudoephedrine HCl [Sudafed] 60 mg PO Q6 #30 tablet Instructions: Sinusitis, Adult (DC), Sinus Headache (DC) Forms: [facility] (Syriac), General Discharge Instructions - Clinical Impression Clinical Impression: Sinusitis - PA / LABORER [employer] / Resident Statement MD/DO has reviewed & agrees with the documentation as recorded. - Scribe Statement The provider has reviewed the documentation as recorded by the Scribe (Katie Castaneda) All medical record entries made by the Scribe were at my direction and personally dictated by me. I have reviewed the chart and agree that the record accurately reflects my personal performance of the history, physical exam, medical decision making, and the department course for this patient. I have also personally directed, reviewed, and agree with the discharge instructions and disposition.
[2018-05-15] MEDS ORDERED: Sodium Chloride 0.9% 1,000 ML IV ONE (11:50)
[2018-05-15 12:10] LABS: BASO % 1.1 % (0.0-2.0); EOS # 0.5 K/uL (0.0-0.7); EOS % 12.7 % (0.0-4.0); HEMOGLOBIN 12.5 g/dL (11.0-16.0); LYMPH # 1.3 K/uL (1.0-4.3); LYMPH % 34.5 % (20.0-40.0); MEAN CELL VOLUME 91.2 fL (81.0-99.0); MEAN CORPUSCULAR HEMOGLOBIN 31.3 pg (27.0-31.0); MEAN CORPUSCULAR HGB CONC 34.4 g/dL (33.0-37.0); MEAN PLATELET VOLUME 8.1 fL (7.2-11.7); MONO # 0.4 K/uL (0.0-0.8); MONO % 9.6 % (0.0-10.0); NEUT # 1.6 K/uL (1.8-7.0); NEUT % 42.1 % (50.0-75.0); NRBC % 0.2 % (0.0-2.0); RED CELL DISTRIBUTION WIDTH 14.1 % (11.5-14.5); WHITE BLOOD COUNT 3.9 K/uL (4.8-10.8)
[2018-05-15] MEDS ORDERED: Sodium Chloride 0.9% 250 ML IV ONE (12:12)
[2018-05-15 12:36] LABS: ALB/GLOB RATIO 1.2 (1.0-2.1); ALBUMIN 4.1 g/dL (3.5-5.0); ALT/SGPT 19 U/L (9-52); AST/SGOT 37 U/L (14-36); BLOOD UREA NITROGEN 9 mg/dL (7-17); CALCIUM 8.6 mg/dl (8.6-10.4); GFR NON-AFRICAN AMERICAN > 60
--- NOTE | 2018-05-15 12:58 | CT ---
Date of service: 05/15/2018 PROCEDURE: CT HEAD WITHOUT CONTRAST. HISTORY: persistent selby with dizziness x 2 weeks COMPARISON: None available. TECHNIQUE: Axial computed tomography images were obtained through the head/brain without intravenous contrast. Radiation dose: Total exam DLP = 875.22 mGy-cm. This CT exam was performed using one or more of the following dose reduction techniques: Automated exposure control, adjustment of the mA and/or kV according to patient size, and/or use of iterative reconstruction technique. FINDINGS: HEMORRHAGE: No intracranial hemorrhage. BRAIN: Hung-white matter differentiation is preserved. There is no mass, mass effect or abnormal extra-axial fluid collection. There is no territorial infarction. The midline sagittal structures are normal. VENTRICLES: The ventricles are normal in size, shape and configuration. CALVARIUM: The skull base and calvarium are normal. PARANASAL SINUSES: There is fluid/soft tissue nearly completely filling the ethmoid maxillary and sphenoid sinuses with fluid level. There is also mild expansion of the sinuses an osteoneogenesis. Central high attenuation in the left maxillary sinus may represent inspissated secretions or superimposed aspergillosis. MASTOID AIR CELLS: Unremarkable as visualized. No inflammatory changes. OTHER FINDINGS: None. IMPRESSION: No acute intracranial abnormality. Findings are most compatible with acute on chronic pansinusitis. Clinical follow-up is advised.
[2018-05-15 15:16] VITALS: BP 100/62; PULSE 75; RESP 18; TEMP 98.1
== END 2018-05-15 15:17 | disposition home or self-care (01) ==
LOC: C.ER 10:15
DX: J32.9 Chronic sinusitis, unspecified (principal)
CPT/HCPCS: 70450; 80053; 85025; 96374; 96375; 99285; J1885; J2765; J7030